=== PATIENT | male | born 1970 | race Caucasian/White ===

== ENCOUNTER → 2019-10-08 10:32 | Outpatient (BNVA) | payer MEDICARE, MEDICAID, SELFPAY | PROVIDERS: Family Provider Counselor Professional; PCP Nurse Practitioner Family; Visit Provider Emergency Medicine | DX: F68.8 Other specified disorders of adult personality and behavior (principal); R51 Headache; R56.9 Unspecified convulsions; I77.9 Disorder of arteries and arterioles, unspecified | CPT/HCPCS: 80053; 84443; 85025 ==

== ENCOUNTER 2019-10-09 02:37 | Emergency (ER) | payer MEDICARE, MEDICAID, SELFPAY ==
--- NOTE | 2019-10-09 02:38 | ECG_ITS ---
Measurements Intervals [place] Rate: 81 P: 46 [place]: 150 QRS: 44 QRSD: 102 T: 35 QT: 337 QTc: 393 SINUS RHYTHM Compared to ECG 03/23/2017 05:14:31 No significant changes Electronically Signed On 10-09-2019 18:19:40 CDT by Delia Mason M.D. [email or web address]
--- NOTE | 2019-10-09 02:38 | XRR_ITS ---
PROCEDURE INFORMATION: Exam: XR Chest, 1 View Exam date and time: 10/09/2019 3:00 AM Age: 49 years old Clinical indication: Cough and shortness of breath; Chest pain; Type not specified; Additional info: Cp TECHNIQUE: Imaging protocol: XR of the chest Views: 1 view. COMPARISON: CR Chest 1 [place] [id number] 03/22/2017 11:28 PM FINDINGS: Lungs: Unremarkable. No consolidation. Pleural space: Unremarkable. No pleural effusion. No pneumothorax. Heart/Mediastinum: Unremarkable. No cardiomegaly. Bones/joints: Cervical spinal fusion hardware. Screw in each humerus. XR/XR chest 1V portable [id number] IMPRESSION: No acute abnormality detected.
[2019-10-09 02:42] VITALS: BP 112/70; PULSE 80; RESP 18; TEMP 36.8; O2SAT 96; BMI 24.3
--- NOTE | 2019-10-09 02:50 | W.ED.CHESTPA ---
HPI - Chest Pain General: Chief Complaint: Chest Pain Stated Complaint: chest pain Time Seen by Provider: 10/09/19 02:38 Source: patient and EMS Mode of arrival: EMS Limitations: no limitations History of Present Illness: HPI narrative: 49-year-old male who has a chest pain over the last 2 hours. Patient states the pain is pressure type pain in the center of his chest that is since resolved with nitro by EMS. Patient also given aspirin. He denies any worsening improving factors. Denies any nausea or shortness of breath. MD complaint: chest pain Onset (ago): hour(s) Timing of current episode: constant Onset: during rest Pain location: substernal Pain radiation: none Severity: moderate Quality: tightness Relieving factors: nitroglycerin Exacerbating factors: nothing Associated symptoms: Deny abdominal pain, dyspnea, fever(s), nausea or vomiting Review of Systems Const: Denies: fever(s), chills, body aches or change in appetite Eyes: Denies: blurry vision or eye discomfort ENMT: Denies: throat pain or dental pain Card: Reports: chest pain Resp: Denies: dyspnea GI: Denies: abdominal pain, nausea, vomiting or diarrhea : Denies: dysuria Musc: Denies: neck pain or back pain Skin/Breast: Denies: rash Neuro: Denies: headache(s) Psych: Denies: depression Tobin/Lymph: Denies: easy bruising All/Imm: Denies: urticaria PFSH ED PFSH: Medical History Carotid artery disease without cerebral infarction Headache Personality change PVC (premature ventricular contraction) Witnessed seizure-like activity Social History Smoking and tobacco status: never smoked Quit status (tobacco): not considering quitting Alcohol intake: never Desire information about alcohol rehabilitation?: No Desire information about substance/drug rehabilitation?: No History of recent travel: No Current gender identity: Male Physical Exam Const: COMMON NORMALS: no acute distress, patient oriented x3 and healthy appearing HENMT: COMMON NORMALS: normocephalic and atraumatic HEAD & SCALP: normocephalic and atraumatic Eye: COMMON NORMALS: Equal, round and reactive pupils present and EOMs intact bilaterally PUPIL: Yes Equal, round and reactive pupils present Neck/C-Spine: COMMON NORMALS: full ROM and supple Chest: COMMONS NORMALS: normal inspection of the chest and normal palpation of entire chest wall Resp: COMMON NORMALS: normal respiratory effort, No retractions, No use of accessory muscles and clear to auscultation bilaterally AUSCULTATION: clear to auscultation bilaterally Cardio: COMMON NORMALS: regular rate, regular rhythm and No murmurs present (Cardio) RATE: regular rate RHYTHM: regular rhythm GI: COMMON NORMALS: Normal to inspection, nondistended, normoactive bowel sounds present, Soft to palpation, non-tender and no masses PALPATION: Yes Soft to palpation Extremity: COMMON NORMALS: normal to inspection and full ROM Neuro: COMMON NORMALS: patient oriented x3, moves all extremities and no focal motor deficits Psych: COMMON NORMALS: mental status grossly normal, Normal thought process present and cooperative THOUGHT PROCESS: Normal thought process present Skin: COMMON NORMALS: no rashes or lesions noted and no wounds GENERAL SKIN EXAM: no rashes or lesions noted Course Vital Signs: Vital signs: Vital Signs Temperature 98.3 F 10/09/19 02:42 Pulse Rate 87 10/09/19 04:50 Respiratory Rate 18 10/09/19 04:50 Blood Pressure 131/73 10/09/19 04:50 Pulse Oximetry 96 10/09/19 04:50 MDM - Chest Pain MDM Narrative: Medical decision making narrative: Brent presents with chest pain is atypical in nature. Patient's initial and repeat troponins are normal. Patient's EKG is normal as well. He has no signs of pulmonary embolism. Patient is stable for discharge is to follow-up with primary care doctor in 3 to 5 days return if worsening. Lab Data: Labs: Lab Results 10/09/19 10/09/19 10/09/19 Range/Units 02:40 02:40 02:40 WBC 9.5 (4.0-10.0) 10^3/ uL RBC 5.04 (4.1-5.3) 10^6/u L Hgb 14.6 (11.7-16.6) g/dL Hct 45.5 (42.0-52.0) % MCV 90.3 (80-94) fL MCH 29.0 (28.0-34.0) pg MCHC 32.1 (30.0-36.0) g/dL RDW 12.8 (12.1-15.1) % Plt Count 339 (130-400) 10^3/c mm MPV 10.3 (7.4-10.4) fL Neut % (Auto) 62.9 % Lymph % (Auto) 23.6 % [place] % (Auto) 10.0 % Eos % (Auto) 2.4 % Baso % (Auto) 0.6 % Neut # (Auto) 5.9 (1.8-7.7) 10^3/u L Lymph # (Auto) 2.2 (0.8-4.8) 10^3/u L [place] # (Auto) 1.0 H (0.2-0.9) 10^3/u L Eos # (Auto) 0.2 (0.0-0.8) 10^3/u L Baso # (Auto) 0.1 (0.0-0.1) 10^3/u L Nucleated RBC % (a uto) 0 % Nucleated RBCs # 0.0 /100WBC Sodium 140 (136-145) mmol/L Potassium 4.5 (3.5-5.1) mmol/L Chloride 107 (98-107) mmol/L Carbon Dioxide 22 (22-29) mmol/L Anion Gap 15.5 (5-19) BUN 33 H (6-20) mg/dL Creatinine 0.8 (0.7-1.2) mg/dL GFR Calculation 101.9 (90-130) mL/min Glucose 100 (65-115) mg/dL Calculated Osmolal ity 287 (285-295) mOsm/k g Calcium 9.7 (8.5-10.5) mg/dL Total Bilirubin 0.2 (0.15-1.2) mg/dL AST 21 (0-40) U/L ALT 26 (0-41) U/L Alkaline Phosphata se 128 (40-130) IU/L Troponin T Baselin e 6 (0-15) ng/L Troponin T 120 Min olaf (0-15) ng/L Total Protein 6.8 (6.6-8.7) g/dL Albumin 4.5 (3.5-5.2) g/dL Globulin 2.3 (1.3-4.6) g/dL 10/09/19 Range/Units 04:47 WBC (4.0-10.0) 10^3/ uL RBC (4.1-5.3) 10^6/u L Hgb (11.7-16.6) g/dL Hct (42.0-52.0) % MCV (80-94) fL MCH (28.0-34.0) pg MCHC (30.0-36.0) g/dL RDW (12.1-15.1) % Plt Count (130-400) 10^3/c mm MPV (7.4-10.4) fL Neut % (Auto) % Lymph % (Auto) % [place] % (Auto) % Eos % (Auto) % Baso % (Auto) % Neut # (Auto) (1.8-7.7) 10^3/u L Lymph # (Auto) (0.8-4.8) 10^3/u L [place] # (Auto) (0.2-0.9) 10^3/u L Eos # (Auto) (0.0-0.8) 10^3/u L Baso # (Auto) (0.0-0.1) 10^3/u L Nucleated RBC % (a uto) % Nucleated RBCs # /100WBC Sodium (136-145) mmol/L Potassium (3.5-5.1) mmol/L Chloride (98-107) mmol/L Carbon Dioxide (22-29) mmol/L Anion Gap (5-19) BUN (6-20) mg/dL Creatinine (0.7-1.2) mg/dL GFR Calculation (90-130) mL/min Glucose (65-115) mg/dL Calculated Osmolal ity (285-295) mOsm/k g Calcium (8.5-10.5) mg/dL Total Bilirubin (0.15-1.2) mg/dL AST (0-40) U/L ALT (0-41) U/L Alkaline Phosphata se (40-130) IU/L Troponin T Baselin e (0-15) ng/L Troponin T 120 Min olaf 6.00 (0-15) ng/L Total Protein (6.6-8.7) g/dL Albumin (3.5-5.2) g/dL Globulin (1.3-4.6) g/dL Imaging Data^: CXR: Radiologist's impression: [address] [place] [address] XRay Report Signed Patient: Brent Wiggins Unit #: [id number] : 1970 Age/Sex: 49 / M ADM Date: 10/09/19 Loc: ER Room/Bed: Attending Dr: Ordering Provider/Ordering MD: Cha Keith MD Date of Service: 10/09/19 Procedure(s): XR chest 1V portable [id number] Accession Number(s): [id number] Report Number: [id number] PROCEDURE INFORMATION: Exam: XR Chest, 1 View Exam date and time: 10/09/2019 3:00 AM Age: 49 years old Clinical indication: Cough and shortness of breath; Chest pain; Type not specified; Additional info: Cp TECHNIQUE: Imaging protocol: XR of the chest Views: 1 view. COMPARISON: CR Chest 1 [place] [id number] 03/22/2017 11:28 PM FINDINGS: Lungs: Unremarkable. No consolidation. Pleural space: Unremarkable. No pleural effusion. No pneumothorax. Heart/Mediastinum: Unremarkable. No cardiomegaly. Bones/joints: Cervical spinal fusion hardware. Screw in each humerus. XR/XR chest 1V portable [id number] IMPRESSION: No acute abnormality detected. EKG Data^: EKG 1: Attestation: I personally reviewed and interpreted this EKG as follows: EKG interpretation date: 10/09/19 EKG interpretation time: 02:56 Interpretation: nsr hr [address] or t wave abnormalities qrs 102 qtc 375 Discharge Plan Discharge Patient Disposition: Home, Self-Care Clinical Impression: Chest pain Qualifiers: Chest pain type: unspecified Qualified Code(s): R07.9 - Chest pain, unspecified Condition: Stable Prescriptions: No Action amoxicillin-pot clavulanate 875-125 mg tablet 1 tab PO BID 10 Days Qty: 20 RF: 0 lisinopril 40 mg tablet 40 mg PO DAILY RF: 0 paroxetine HCl [Paxil] 20 mg tablet 20 mg PO DAILY RF: 0 oxycodone-acetaminophen 10-325 mg tablet 1 tab PO Q6H PRNRF: 0 aripiprazole [Abilify] 10 mg tablet 10 mg PO DAILY RF: 0 Discharge Orders: Discharge Order (Routine); Ordered 10/09/19 Ordered By: Cha Keith Discharge Diet: Advance as tolerated Discharge Activity: Resume usual activity Patient Instructions: Chest Pain (ED) Coding Level of Care Code ED 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
[2019-10-09 02:51] LABS: Basophils # 0.1 10^3/uL (0.0-0.1); Basophils % 0.6 %; Eosinophils # 0.2 10^3/uL (0.0-0.8); Eosinophils % 2.4 %; Hematocrit 45.5 % (42.0-52.0); Hemoglobin 14.6 g/dL (11.7-16.6); Lymphocytes # 2.2 10^3/uL (0.8-4.8); Lymphocytes % 23.6 %; Mean Corpuscular HGB Conc 32.1 g/dL (30.0-36.0); Mean Corpuscular Volume 90.3 fL (80-94); Mean Platelet Volume 10.3 fL (7.4-10.4); Neutrophils # 5.9 10^3/uL (1.8-7.7); Neutrophils % 62.9 %; Nucleated Red Blood Cells % 0 %; Platelet Count 339 10^3/cmm (130-400); Red Blood Count 5.04 10^6/uL (4.1-5.3); Red Cell Distribution Width 12.8 % (12.1-15.1); White Blood Count 9.5 10^3/uL (4.0-10.0)
[2019-10-09 03:10] LABS: Alanine Aminotransferase 26 U/L (0-41); Albumin Level 4.5 g/dL (3.5-5.2); Alkaline Phosphatase 128 IU/L (40-130); Anion Gap 15.5 (5-19); Aspartate Amino Transferase 21 U/L (0-40); Carbon Dioxide 22 mmol/L (22-29); Chloride 107 mmol/L (98-107); Globulin 2.3 g/dL (1.3-4.6); Glucose 100 mg/dL (65-115); Potassium 4.5 mmol/L (3.5-5.1); Sodium 140 mmol/L (136-145); Total Bilirubin 0.2 mg/dL (0.15-1.2); Total Protein 6.8 g/dL (6.6-8.7)
[2019-10-09 03:11] LABS: Troponin(5th) Baseline 6 ng/L (0-15)
[2019-10-09 03:33] LABS: Blood Urea Nitrogen 33 mg/dL (6-20); Calcium 9.7 mg/dL (8.5-10.5); Glomerular Filtration Rate 101.9 mL/min (90-130); Osmolality Calculated 287 mOsm/kg (285-295)
[2019-10-09 04:50] VITALS: BP 131/73; PULSE 87; RESP 18; O2SAT 96
[2019-10-09 05:18] LABS: Troponin 5 2HR Delta 0 ABS# (0-10)
[2019-10-09 05:39] VITALS: BP 146/56; PULSE 68; RESP 19; O2SAT 95
== END 2019-10-09 05:40 | disposition home or self-care (01) ==
PROVIDERS: Emergency Provider Emergency Medicine
DX: R07.9 Chest pain, unspecified (principal); I25.10 Atherosclerotic heart disease of native coronary artery without angina pectoris
CPT/HCPCS: 12345; 71045; 80053; 84484; 85025; 93005; 99281; 99284

== ENCOUNTER 2019-10-12 14:07 | Outpatient (CLI) | payer MEDICARE, MEDICAID, SELFPAY ==
--- NOTE | 2019-10-12 15:00 | CT_ITS ---
WS: [id number] CT HEAD TECHNIQUE: Noncontrast CT of the head obtained from the skullbase to the vertex. CLINICAL INFORMATION: headache, personality change COMPARISON: November 14, 2015 DLP: 925.[address] scans at [facility] use at least one of these dose optimization techniques: automat ed exposure control; mA and/or kV adjustment per patient size (includes targeted exams where dose is matched to clinical indication); or iterative reconstruction. FINDINGS: No evidence of intracranial hemorrhage or mass effect. Ventricular system and basal cisterns are lundy nt. No significant small vessel changes. No significant volume loss. No extra-axial fluid collections . No evidence of mass or mass effect. Normal schofield-white differentiation. Paranasal sinuses and mastoid air cells are well aerated. .Normal visualized soft tissues. CT/CT head wo con* [id number] IMPRESSION: 1. No evidence of intracranial hemorrhage or mass effect. 2. No significant parenchymal volume loss. 3. No acute intracranial findings.
--- NOTE | 2019-10-12 15:15 | CT_ITS ---
WS: [id number] CT NECK TECHNIQUE: Noncontrast CT of the neck with coronal and sagittal reformatted images. CLINICAL INFORMATION: headache, personality change COMPARISON: None. DLP: 2605.[address] scans at [facility] use at least one of these dose optimization techniques: automat ed exposure control; mA and/or kV adjustment per patient size (includes targeted exams where dose is matched to clinical indication); or iterative reconstruction. FINDINGS: Straightening of the normal cervical lordosis. Anterior cervical fusion C5-C7 with interbody fusion. Parotid glands are normal. Normal submandibular glands. Normal posterior nasopharynx. Normal paraphar yngeal fat. Normal palatine tonsils. Normal prevertebral soft tissues. Vallecula and epiglottis are normal. Normal glottis and subglottic airway. Normal thyroid. A few slig ht prominent cervical lymph nodes likely reactive.No cervical lymphadenopathy. Lung apices are well aerated. CT/CT neck wo con [id number] IMPRESSION: 1. No evidence of supraglottic or glottic mass. 2. Normal salivary glands. 3. A few prominent cervical lymph nodes not pathologically enlarged likely nini ctive. 4. Prior postoperative changes anterior cervical disc space fusion C5-C7.
== END 2019-10-12 14:08 | disposition home or self-care (01) ==
LOC: RADWPI 14:12
PROVIDERS: Visit Provider Emergency Medicine
DX: R51 Headache (principal); F68.8 Other specified disorders of adult personality and behavior
CPT/HCPCS: 70450; 70490

== ENCOUNTER → 2019-10-15 08:07 | Outpatient (BNVA) | payer MEDICARE, SELFPAY | PROVIDERS: Visit Provider Counselor Professional | DX: F43.12 Post-traumatic stress disorder, chronic (principal); F41.1 Generalized anxiety disorder | CPT/HCPCS: 90791 ==

== ENCOUNTER → 2019-10-19 10:23 | Outpatient (BNVA) | payer MEDICARE, MEDICAID, SELFPAY | PROVIDERS: Visit Provider Psychiatry & Neurology Psychiatry | DX: F39 Unspecified mood [affective] disorder (principal); F09 Unspecified mental disorder due to known physiological condition; F07.89 Other personality and behavioral disorders due to known physiological condition | CPT/HCPCS: 99205 ==

== ENCOUNTER → 2019-10-26 13:31 | Outpatient (BNVA) | payer MEDICARE, SELFPAY | PROVIDERS: Referring Provider Family Medicine; Visit Provider Specialist | DX: G40.909 Epilepsy, unspecified, not intractable, without status epilepticus (principal) | CPT/HCPCS: 95816 ==

== ENCOUNTER 2019-11-07 00:02 | Inpatient (IN) | payer MEDICARE, MEDICAID, SELFPAY ==
[2019-11-07 00:41] VITALS: BMI 24.4
[2019-11-07 00:54] LABS: Basophils # 0.1 10^3/uL (0.0-0.1); Basophils % 0.4 %; Eosinophils # 0.3 10^3/uL (0.0-0.8); Eosinophils % 2.1 %; Hematocrit 46.9 % (42.0-52.0); Hemoglobin 15.5 g/dL (11.7-16.6); Lymphocytes # 2.4 10^3/uL (0.8-4.8); Lymphocytes % 17.5 %; Mean Corpuscular Hemoglobin 28.8 pg (28.0-34.0); Mean Corpuscular Volume 87.2 fL (80-94); Mean Platelet Volume 11.5 fL (7.4-10.4); Monocytes # 1.5 10^3/uL (0.2-0.9); Monocytes % 11.2 %; Neutrophils # 9.2 10^3/uL (1.8-7.7); Neutrophils % 68.4 %; Nucleated Red Blood Cells % 0 %; Platelet Count 372 10^3/cmm (130-400); Red Blood Count 5.38 10^6/uL (4.1-5.3); Red Cell Distribution Width 13.4 % (12.1-15.1); White Blood Count 13.4 10^3/uL (4.0-10.0)
[2019-11-07 01:02] LABS: Glucose Point of Care 109 mg/dL (70-110)
[2019-11-07 01:18] LABS: Alanine Aminotransferase 30 U/L (0-41); Albumin Level 4.9 g/dL (3.5-5.2); Alkaline Phosphatase 131 IU/L (40-130); Anion Gap 20.2 (5-19); Aspartate Amino Transferase 38 U/L (0-40); Blood Urea Nitrogen 19 mg/dL (6-20); Calcium 9.4 mg/dL (8.5-10.5); Carbon Dioxide 20 mmol/L (22-29); Chloride 102 mmol/L (98-107); Globulin 3.6 g/dL (1.3-4.6); Glomerular Filtration Rate 58.2 mL/min (90-130); Glucose 143 mg/dL (65-115); Osmolality Calculated 287 mOsm/kg (285-295); Potassium 3.2 mmol/L (3.5-5.1); Sodium 139 mmol/L (136-145); Total Bilirubin 0.6 mg/dL (0.15-1.2); Total Protein 8.5 g/dL (6.6-8.7)
[2019-11-07 01:37] LABS: Acetaminophen < 5.0 ug/mL (10-30); Alcohol Level < 10 mg/dL (0-10); Salicylate < 0.3 mg/dL (3-10)
[2019-11-07 02:36] VITALS: BP 124/75; PULSE 82; RESP 18; O2SAT 93
[2019-11-07] MEDS: sodium chlor 0.9% + KCl 40 mEq 40 MEQ/1,000 ML BAG 1000 MEQ IV (02:45)
--- NOTE | 2019-11-07 02:48 | XRR_ITS ---
PROCEDURE INFORMATION: Exam: XR Chest, 1 View Exam date and time: 11/07/2019 3:24 AM Age: 49 years old Clinical indication: Patient HX: Cough; Tried to harm himself by taking meth TECHNIQUE: Imaging protocol: XR of the chest Views: Frontal portable upright view of the chest. COMPARISON: CR XR chest 1V portable [id number] 10/09/2019 2:44 AM FINDINGS: Tubes, catheters and devices: Lower cervical spinal anterior fixation hardware. Bilateral proximal humeral greater tuberosity suture anchors. Lungs: The lungs are clear bilaterally. The pulmonary vasculature is normal. Pleural space: No pleural effusion. No pneumothorax. Heart/Mediastinum: The heart is normal in size and contour. Bones/joints: No acute chest wall abnormality identified. XR/XR chest 1V [id number] IMPRESSION: No acute cardiopulmonary abnormality identified.
[2019-11-07 02:52] VITALS: TEMP 36.4
--- NOTE | 2019-11-07 02:54 | PC.NURSE ---
Pt. placed in paper scrubs.
[2019-11-07 03:07] LABS: Add Urine Microscopic? YES; Bilirubin Urine 1+ (NEGATIVE); Blood Urine Neg (Negative); Glucose Urine UA Norm (Normal); Ketones Urine Negative (Negative); Leukocyte Esterase Urine Negative (Negative); Nitrate Urine Negative (Negative); Protein Urine Neg (Negative); Urine Appearance Hazy (CLEAR); Urine Color Dark Yellow (Yellow); Urobilinogen Urine 1 mg/dL (Negative); pH Urine 5 (5-7)
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
[2019-11-07] MEDS: guaiFENesin-codeine UDC 10 mL 5 ML PO (03:31)
[2019-11-07 03:35] LABS: Add Urine Culture? No; Bacteria Urine TRACE; Hyaline Casts Urine 25-40; Mucus Urine 3+; RBC Urine 0-4 /hpf (0-2)
[2019-11-07 03:36] LABS: Amphetamines Screen Urine Positive (Negative); Barbiturates Screen Urine Negative (Negative); Benzodiazepines Screen Urine Negative (Negative); Cocaine Screen Urine Negative (Negative); Opiate Screen Urine Negative (Negative); PCP Screen Urine Negative (Negative); THC Screen Urine Negative (Negative)
[2019-11-07 03:39] VITALS: BP 120/87; PULSE 82; RESP 19; O2SAT 97
[2019-11-07 06:00] VITALS: BP 136/97; PULSE 79; RESP 19; TEMP 36.6; O2SAT 97
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
[2019-11-07] MEDS: hyDROXYzine 25 mg Capsule 50 MG PO ×2 (13:30→22:27)
[2019-11-07 14:00] VITALS: BP 96/61; PULSE 82; RESP 18; TEMP 36.8
[2019-11-07 21:48] VITALS: BP 105/61; PULSE 82; RESP 21; TEMP 36.9; O2SAT 98
[2019-11-07] MEDS: trazodone 50 mg Tablet PO (22:27)
[2019-11-08 06:00] VITALS: BP 128/63; PULSE 65; RESP 19; TEMP 36.9; O2SAT 96
[2019-11-08] MEDS: hyDROXYzine 25 mg Capsule 50 MG PO (12:13)
--- NOTE | 2019-11-08 12:13 | PC.NURSE ---
PRN VISTARIL VISTARIL 50MG PO PER PATIENT C/O ANXIETY. WILL CONTINUE TO MONITOR FOR MEDICATION EFFECTIVENESS.
--- NOTE | 2019-11-08 13:00 | PC.NURSE ---
PRN VISTARIL FOLLOW UP MEDICATION EFFECTIVE. NO FURTHER C/O ANXIETY.
[2019-11-08 14:00] VITALS: BP 109/72; PULSE 80; RESP 20; TEMP 37; O2SAT 96
--- NOTE | 2019-11-08 14:37 | P.PN_ITS ---
Subjective NPU Subjective: Interval history: Subjective: Patient confirms the presence of signs and symptoms of clinical depression. He reports that the suicide attempt by methamphetamine overdose was impulsive and due to a response to the family distress of the day before. He had been sober and clean for 2 years before using the methamphetamine. It was not a habitual activity. He is very r emorseful over the act and is looking forward to getting home to his . He also reports the presence of persistent insomnia, irritability, feelings of hopelessness, worthlessness, anhedonia. He denies the presence of auditory or visual hallucinations. He denies a history of manic symptoms. He denies alcohol or substance abuse issues. Mental Status Exam MSE Comments: Objective: Mental Status Exam: Patient is alert interpersonally engaged male appearing approximately his stated age. He is believed to be a reliable informant to the best of his ability has information provided this internally consistent and consistent with that in the chart. Appearance: hygiene is fair; no gross neurological deficits., gait is unremarkable; AIMS=0 Speech: Speech is of normal rate and rhythm and easily understood. Thought processes: Thought processes are abstract. Judgment is adequate for safety. Associations: intact Psychotic processes: There is no indication of guarding or paranoia. There is no attention to the internal stimuli. Auditory and visual hallucinations are denied. Judgment: Insight is fair. Problem solving skills are adequate for safety. Orientation: The patient is oriented to person, place time and situation. Memory: no deficits noted in immediate, intermediate, or remote spheres. Attention: The patient is alert and interpersonally engaged. Language: Verbalizations are coherent. Fund of knowledge: Fund of knowledge is adequate. Affect/Mood: Affect is tearful with a depressed mood. denied suicidal ideation Affective range is appropriate. Psychosis: perception unimpaired except through cognitive distortion; reality testing intact. Vitals/I&O/Wt Last Vital Signs Temp 98.5 F 11/08/19 06:00 Pulse 65 11/08/19 06:00 Resp 19 H 11/08/19 06:00 BP 128/63 11/08/19 06:00 Pulse Ox 96 11/08/19 06:00 Weight last 48 hrs Weight 81.647 kg Weight 81.647 kg Data NPU : 11/07/19 00:47 11/07/19 00:47 A&P Additional A&P Information Assessment: 1. Major episode?single, severe, without psychotic features PLAN: Due to the psychiatric conditions and treatment listed in the Assessment and Plan - the patient requires continued hospitalization. Will provide a safe and therapeutic environment for patient.. Will continue inpatient treatment to allow for medication adjustment and monitoring. Will continue q15 min safety checks. Hospital day #2: The patient was educated with regard to signs and symptoms of depression and expected response to medications if effective. He was also educated that with regard to time course of response to medications and contingency plan in the presence of adverse or unexpected side effects. He agreed to initiate Prozac 20 mg daily. Trazodone 100 mg at bedtime will be provided for sleep and Atarax 20 mg twice daily as needed anxiety. Monitor patient's mood, sleep, appetite, and behavior closely. Encourage patient to participate in individual and group therapeutic sessions on the wells. Estimated length of stay 5 days The expected benefits and potential side effects of patient's psychiatric medications were discussed with the patient. The patient understands and consents to treatment. CRITERIA FOR DISCHARGE: stable on medications and no longer an imminent threat to self or others Involuntary Hold Information 96 Hour Hold: 96 Hour Involuntary Admission: No Attestations NPU Medical Necessity Statement*: Patient will remain in the hospital another 2 to 3 days for assessment of tolerability and effectiveness of medication. Coding Level of Care Code Acute Aerospace Engineer for Ruddy Dorsey
[2019-11-08] MEDS: cetylpyridinium Lozenge 1 EACH PO (15:40)
[2019-11-08] MEDS: fluoxetine 20 mg Capsule PO (15:40)
[2019-11-08 20:12] VITALS: BP 100/57; PULSE 72; RESP 15; TEMP 37.1; O2SAT 97
[2019-11-08] MEDS: trazodone 50 mg Tablet 100 MG PO (20:50)
--- NOTE | 2019-11-08 20:50 | PC.NURSE ---
Addendum entered by Miki Reynolds LPN 11/09/19 01:28: LATE ENTRY PRN TRAZODONE FOLLOW UP @ 2150 PRN MEDICATION EFFECTIVE. PT RESTING IN BED W/EYES CLOSED RESPIRATIONS EVEN AND UNLABORED. WILL CONTINUE TO MONITOR. Original Note: PRN TRAZODONE PT REQUESTING SLEEP AID. ADMINISTERED TRAZODONE 100MG PO. WILL MONITOR FOR MEDICATION EFFECTIVENESS.
[2019-11-09 06:00] VITALS: BP 136/73; PULSE 71; RESP 15; TEMP 36.8; O2SAT 96
[2019-11-09] MEDS: hyDROXYzine 25 mg Capsule 50 MG PO (06:57)
--- NOTE | 2019-11-09 07:04 | PC.NURSE ---
PRN VISTARIL [PT REQUESTING SOMETHING FOR ANXIETY. ADMINISTERED VISTARIL 50 MG PO. WILL MONITOR FOR MEDICATION EFFECTIVENESS.
[2019-11-09] MEDS: fluoxetine 20 mg Capsule PO (09:00)
--- NOTE | 2019-11-09 11:35 | PM.NDC ---
Diagnoses at Discharge Discharge Diagnosis (1) Major depression, single episode: Status: Acute Reason for Visit Reason for Visit: TRIED TO HARM HIMSELF BY TAKING METH Brief History: Initial H&P:Brent Wiggins is a 49 year old male Per last [facility] [place] eval: History of Present Illness Date of Service: Mar 23, 2017 Chief Complaint: Depression suicidal ideation HPI: Patient is a 46-year-old male who is not known to our behavioral health services who presented initially to the [facility] ED with a complaint of chest pain. His cardiac enzymes negative workup was negative. He eventually expressed suicidal ideation with a plan to take an overdose on tablets. His BAL on admission was negative, his UDS was negative. As the patient presents today he states that he's been having difficulties with his relationship with his mother and his girlfriend. He does state however that for the past month he's been experiencing worsening depression symptoms characterized by depressed mood, anhedonia, decreased energy, decreased motivation, decreased appetite, interrupted sleep, intermittent hopelessness, and most recently suicidal ideation. He reports that he is experience depression episodes in the past and in comparison, this is the worst that she's experienced in a while. He also admits to anxiety, in the form of worry, and in the form of anxiety attacks that happened 1-2 times a week, without any specific trigger. He denies any symptoms consistent with ady, hypomania, psychosis. Patient states that he is not a regular drinker but 3 days ago he did binge drink because he was feeling somewhat hopeless. He does not smoke cigarettes, he states that he last used methamphetamines approximately 1 year ago, no other substance use. Hospital Course Hospital Course Hospital day #2 Interval history: Subjective: Patient confirms the presence of signs and symptoms of clinical depression. He reports that the suicide attempt by methamphetamine overdose was impulsive and due to a response to the family distress of the day before. He had been sober and clean for 2 years before using the methamphetamine. It was not a habitual activity. He is very remorseful over the act and is looking forward to getting home to his . He also reports the presence of persistent insomnia, irritability, feelings of hopelessness, worthlessness, anhedonia. He denies the presence of auditory or visual hallucinations. He denies a history of manic symptoms. He denies alcohol or substance abuse issues. Plan: Hospital day #2: The patient was educated with regard to signs and symptoms of depression and expected response to medications if effective. He was also educated that with regard to time course of response to medications and contingency plan in the presence of adverse or unexpected side effects. He agreed to initiate Prozac 20 mg daily. Trazodone 100 mg at bedtime will be provided for sleep and Atarax 20 mg twice daily as needed anxiety. Involuntary Hold Information 96 Hour Hold: 96 Hour Involuntary Admission: No Mental Status Exam MSE Comments: Discharge Mental Status Exam: Appearance: hygiene is good; no gross neurological deficits., gait is unremarkable; AIMS=0 Speech: Speech is of normal rate and rhythm and easily understood. Thought processes: Thought processes are abstract. Judgment is adequate for safety. Associations: intact Psychotic processes: There is no indication of guarding or paranoia. There is no attention to the internal stimuli. Auditory and visual hallucinations are denied. Judgment: Insight is fair. Problem solving skills are adequate for safety. Orientation: The patient is oriented to person, place time and situation. Memory: no deficits noted in immediate, intermediate, or remote spheres. Attention: The patient is alert and interpersonally engaged. Language: Verbalizations are coherent. Fund of knowledge: Fund of knowledge is adequate. Affect/Mood: Affect is consistent with a euthymic mood. denied suicidal ideation Affective range is appropriate. Psychosis: perception unimpaired except through cognitive distortion; reality testing intact. Discharge Data Data Completed and Pending: Completed Studies During Hospitalization Category Date Time Status XR chest 1V 42017 Stat Exams 11/07/19 02:48 Completed Vitals: Last Vital Signs Temp 98.2 F 11/09/19 06:00 Pulse 71 11/09/19 06:00 Resp 15 11/09/19 06:00 BP 136/73 11/09/19 06:00 Pulse Ox 96 11/09/19 06:00 Discharge Plan Discharge Patient Disposition: Home, Self-Care Condition: Stable Prescriptions: New fluoxetine 20 mg Capsule 20 mg PO DAILY Qty: 30 RF: 4 hydroxyzine pamoate 25 mg Capsule 50 mg PO Q6H PRN (Reason: Anxiety) Qty: 30 RF: 2 trazodone 100 mg tablet 100 mg PO BEDTIME PRN (Reason: insomnia) Qty: 20 RF: 2 Discontinued paroxetine HCl [Paxil] 20 mg tablet 40 mg PO DAILY Qty: 30 RF: 2 oxcarbazepine [Trileptal] 150 mg tablet 150 mg PO BID Qty: 120 RF: 2 folic acid 1 mg tablet 1 mg PO DAILY Qty: 30 RF: 2 zinc 50 mg tablet 50 mg PO DAILY Qty: 30 RF: 2 magnesium oxide 200 mg magnesium tablet 200 mg PO BID Qty: 60 RF: 2 armodafinil [Nuvigil] 150 mg tablet 150 mg PO QAM Qty: 30 RF: 2 amoxicillin-pot clavulanate 875-125 mg tablet 1 tab PO BID 10 Days Qty: 20 RF: 0 oxycodone-acetaminophen 10-325 mg tablet 1 tab PO Q6H PRNRF: 0 lisinopril 40 mg tablet 20 mg PO DAILY RF: 0 Discharge Orders: Discharge Order (Routine); Ordered 11/09/19 Ordered By: Kyree Betancur Discharge Attestations NPU Time Spent in Discharge Care*: greater than 30 min Coding Level of Care Code Acute Sales Representative [employer] for Ruddy Fwdenzel Diagnoses Major depression, single episode F32.9
[2019-11-09] MEDS: cetylpyridinium Lozenge 1 EACH PO (11:43)
[2019-11-09 11:56] VITALS: BP 136/73; PULSE 71; RESP 15; TEMP 36.8; O2SAT 96
== END 2019-11-09 12:49 | disposition home or self-care (01) | DRG 885 ==
LOC: ER 02:51 → NP 03:06
PROVIDERS: Emergency Medicine; Admitting Provider Psychiatry & Neurology Psychiatry; Visit Provider Psychiatry & Neurology Psychiatry
DX: F32.2 Major depressive disorder, single episode, severe without psychotic features (principal); R45.851 Suicidal ideations; I10 Essential (primary) hypertension; G89.29 Other chronic pain; M54.9 Dorsalgia, unspecified; M54.2 Cervicalgia; K21.9 Gastro-esophageal reflux disease without esophagitis; G25.81 Restless legs syndrome; G47.30 Sleep apnea, unspecified; F17.210 Nicotine dependence, cigarettes, uncomplicated
CPT/HCPCS: 12345; 36416; 71045; 80053; 80156; 80306; 80307; 81001; 81003; 82962; 85025; 99284

== ENCOUNTER 2019-12-08 13:04 | Outpatient (CLI) | payer MEDICARE, MEDICAID, SELFPAY ==
--- NOTE | 2019-12-08 10:15 | USCV_ITS ---
Brent Wiggins Age: 49 Gender: M : 1970 Exam Date: 12/08/2019 13:15 Ordering Phys: Efrain Cornejo Technologist: Heidy May [place] [facility] [place] STENOS[place] Risk Factors: Previous Vascular Surgery: Right Brachial BP: / Left Brachial BP: / Right Left Velocity (cm/s) Spectral Plaque Velocity (cm/s) Spectral Plaque Syst/Diast Broadening Syst/Diast Broadening 62.10/ 10.90 Prox CCA 41.30 / 14.80 68.40/ 19.40 Mid CCA 43.60 / 13.00 60.60/ 18.60 Distal CCA 45.40 / 12.50 51.90/ 15.10 Prox ICA 55.90 / 20.90 / Mid ICA 63.10 / 26.50 47.30/ 15.50 Distal ICA 73.30 / 29.20 125.80 ECA 61.10 0.76 ICA/CCA 1.61 Antegrade Vertebral Antegrade 36.70/ 8.80 cm/s 31.40/ 8.10 cm/s Tri Subclavian Tri 98.20 FINDINGS Comparison:. none No significant elevation of systolic or diastolic velocities. Waveforms are normal. CONCLUSIONS Normal carotid doppler ultrasound. Dr. Elly Easley DO (Electronically Signed) Final Date: 08 December 2019 15:38 S
== END 2019-12-08 13:05 | disposition home or self-care (01) ==
LOC: RAD 13:07
PROVIDERS: PCP Family Medicine; Visit Provider Emergency Medicine
DX: Z87.898 Personal history of other specified conditions (principal); I65.29 Occlusion and stenosis of unspecified carotid artery
CPT/HCPCS: 93880

== ENCOUNTER 2020-03-24 14:53 | Outpatient (CLI) | payer MEDICARE, MEDICAID, SELFPAY ==
--- NOTE | 2020-03-24 15:00 | XR_ITS ---
WS: [id number] Exam: XR cervical spine 3V* [id number] Date/Time of Exam: 03/24/2020 3:00 PM Reason For Exam: M54.2 - Cervicalgia Comparison 05/09/2015. Interbody fusion of the C-spine from C5 to C7. Disc implants at C5-6 and C6-7. The fusion is ossified and in satisfactory alignment. The odontoid is intact. Mild facet DJD at all levels. Normal paraspin al soft tissues. No sign of hardware failure or malposition. XR/XR cervical spine 3V* [id number] IMPRESSION: 1. Stable-appearing interbody fusion from C5 to C7. 2. Mild facet DJD. No other significant finding.
== END 2020-03-24 14:54 | disposition home or self-care (01) ==
LOC: RAD 14:57
PROVIDERS: PCP Family Medicine; Visit Provider Emergency Medicine
DX: R51.9 Headache, unspecified (principal); M43.22 Fusion of spine, cervical region; M47.812 Spondylosis without myelopathy or radiculopathy, cervical region
CPT/HCPCS: 72040

== ENCOUNTER → 2020-04-03 11:15 | Outpatient (BNVA) | payer MEDICARE, MEDICAID, SELFPAY | PROVIDERS: PCP Family Medicine; Visit Provider Specialist | DX: R56.9 Unspecified convulsions (principal); G43.711 Chronic migraine without aura, intractable, with status migrainosus; F41.9 Anxiety disorder, unspecified; F43.10 Post-traumatic stress disorder, unspecified; F31.9 Bipolar disorder, unspecified; F17.220 Nicotine dependence, chewing tobacco, uncomplicated | CPT/HCPCS: 99205 ==

== ENCOUNTER 2020-04-29 15:57 | Inpatient (IN) | payer MEDICARE, MEDICAID, SELFPAY ==
[2020-04-29 15:58] VITALS: BP 187/109; PULSE 73; RESP 16; TEMP 36.6; O2SAT 98; BMI 24.3
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
[2020-04-29] MEDS: LORazepam 2 mg Tablet PO (16:41)
[2020-04-29 17:28] LABS: Add Urine Microscopic? NO
[2020-04-29 17:30] LABS: Urine Appearance Clear (CLEAR); Urine Color Yellow (Yellow); pH Urine 5 (5-7)
[2020-04-29 17:31] LABS: Bilirubin Urine Neg (Negative); Blood Urine Neg (Negative); Glucose Urine UA Norm (Normal); Ketones Urine Negative (Negative); Leukocyte Esterase Urine Negative (Negative); Nitrate Urine Negative (Negative); Protein Urine Neg (Negative); Urobilinogen Urine Norm (Negative)
[2020-04-29 17:39] LABS: Amphetamines Screen Urine Positive (Negative); Barbiturates Screen Urine Negative (Negative); Benzodiazepines Screen Urine Negative (Negative); Cocaine Screen Urine Negative (Negative); Opiate Screen Urine Negative (Negative); PCP Screen Urine Negative (Negative); THC Screen Urine Negative (Negative)
[2020-04-29 17:50] LABS: Basophils # 0.1 10^3/uL (0.0-0.1); Basophils % 0.7 %; Eosinophils # 0.2 10^3/uL (0.0-0.8); Eosinophils % 1.9 %; Hematocrit 43.6 % (42.0-52.0); Hemoglobin 14.8 g/dL (11.7-16.6); Lymphocytes # 2.3 10^3/uL (0.8-4.8); Mean Corpuscular HGB Conc 33.9 g/dL (30.0-36.0); Mean Corpuscular Hemoglobin 28.7 pg (28.0-34.0); Mean Corpuscular Volume 84.7 fL (80-94); Mean Platelet Volume 10.4 fL (7.4-10.4); Monocytes # 0.7 10^3/uL (0.2-0.9); Monocytes % 8.8 %; Neutrophils # 4.97 10^3/uL (1.8-7.7); Neutrophils % 60.4 %; Nucleated Red Blood Cells % 0 %; Platelet Count 345 10^3/cmm (130-400); Red Blood Count 5.15 10^6/uL (4.1-5.3); Red Cell Distribution Width 13.2 % (12.1-15.1); White Blood Count 8.3 10^3/uL (4.0-10.0)
[2020-04-29 18:05] LABS: Alanine Aminotransferase 28 U/L (0-41); Alkaline Phosphatase 156 IU/L (40-130); Aspartate Amino Transferase 26 U/L (0-40); Blood Urea Nitrogen 11 mg/dL (6-20); Calcium 9.2 mg/dL (8.5-10.5); Carbon Dioxide 24 mmol/L (22-29); Chloride 103 mmol/L (98-107); Globulin 2.8 g/dL (1.3-4.6); Glomerular Filtration Rate 118.9 mL/min (90-130); Glucose 100 mg/dL (65-115); Osmolality Calculated 281 mOsm/kg (285-295); Sodium 136 mmol/L (136-145); Total Bilirubin 0.2 mg/dL (0.15-1.2); Total Protein 6.8 g/dL (6.6-8.7)
[2020-04-29 18:09] LABS: Acetaminophen < 5.0 ug/mL (10-30); Alcohol Level < 10 mg/dL (0-10); Salicylate < 0.3 mg/dL (3-10)
[2020-04-29] MEDS: lidocaine 1% INJ 20 mL INJECTION (18:20)
--- NOTE | 2020-04-29 18:30 | PC.NURSE ---
Dr. Escoto removed a large splinter from under the left ring fingernail. Finger dressed with a bandaid and coban for pressure.
[2020-04-29] MEDS: tetanus-dipt-pertussis 0.5 mL SDV IM (18:43)
[2020-04-29 19:28] VITALS: BP 153/100; PULSE 99; RESP 17; TEMP 36.3; O2SAT 95
[2020-04-29] MEDS: hyDROXYzine 25 mg Capsule 50 MG PO (20:42)
[2020-04-29] MEDS: trazodone 50 mg Tablet PO (20:42)
[2020-04-29 21:27] VITALS: BP 153/100; PULSE 99; RESP 17; TEMP 36.3; O2SAT 95
[2020-04-30 06:00] VITALS: BP 169/90; PULSE 71; RESP 17; TEMP 37.2; O2SAT 91; BMI 24.3
[2020-04-30] MEDS: amoxicillin-clav 875-125 mg Tablet 1 TAB PO ×2 (08:20→20:39)
[2020-04-30] MEDS: OXcarbazepine 300 mg Tablet 600 MG PO ×2 (08:20→20:39)
[2020-04-30] MEDS: fluoxetine 20 mg Capsule 40 MG PO (08:20)
[2020-04-30] MEDS: gabapentin 300 mg Capsule PO ×2 (08:20→20:41)
[2020-04-30 13:43] VITALS: BP 160/90; PULSE 72; RESP 18; TEMP 36.5
[2020-04-30] MEDS: acetaminophen 325 mg Tablet 650 MG PO (14:19)
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
[2020-04-30 20:10] VITALS: BP 145/70; PULSE 84; RESP 17; TEMP 36.1; O2SAT 96
[2020-04-30] MEDS: hyDROXYzine 25 mg Capsule 50 MG PO (20:39)
[2020-04-30] MEDS: trazodone 50 mg Tablet PO (20:40)
[2020-05-01 06:00] VITALS: BP 135/74; PULSE 63; RESP 16; TEMP 36.7; O2SAT 94
[2020-05-01] MEDS: gabapentin 300 mg Capsule PO ×2 (08:49→20:26)
[2020-05-01] MEDS: fluoxetine 20 mg Capsule PO (08:50)
[2020-05-01] MEDS: OXcarbazepine 300 mg Tablet 600 MG PO ×2 (08:50→20:26)
[2020-05-01] MEDS: amoxicillin-clav 875-125 mg Tablet 1 TAB PO ×2 (08:51→20:26)
--- NOTE | 2020-05-01 11:21 | PC.RESP ---
Smoking Cessation information sent to patient.
[2020-05-01 13:38] VITALS: BP 127/73; PULSE 78; RESP 18; TEMP 36.9; O2SAT 93
[2020-05-01] MEDS: acetaminophen 325 mg Tablet 650 MG PO (19:52)
[2020-05-01 20:23] VITALS: BP 114/74; PULSE 98; RESP 18; TEMP 37.2; O2SAT 93
[2020-05-01] MEDS: trazodone 50 mg Tablet PO (20:26)
[2020-05-01] MEDS: hyDROXYzine 25 mg Capsule 50 MG PO (20:26)
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
[2020-05-01] MEDS: trazodone 150 mg Tablet PO (21:42)
[2020-05-02 06:00] VITALS: BP 124/88; PULSE 74; RESP 16; TEMP 36.7; O2SAT 92
[2020-05-02] MEDS: OXcarbazepine 300 mg Tablet 600 MG PO (08:13)
[2020-05-02] MEDS: fluoxetine 20 mg Capsule PO (08:13)
[2020-05-02] MEDS: amoxicillin-clav 875-125 mg Tablet 1 TAB PO (08:13)
[2020-05-02] MEDS: gabapentin 300 mg Capsule PO (08:14)
[2020-05-02] MEDS: nicotine 2 mg Gum BUCCAL (10:39)
[2020-05-02] MEDS: hyDROXYzine 25 mg Capsule 50 MG PO (10:41)
--- NOTE | 2020-05-02 10:41 | PC.NURSE ---
Visteril 50mg PO given for anxiety. Will continue to monitor.
[2020-05-02 11:58] VITALS: BP 124/88; PULSE 74; RESP 16; TEMP 36.7; O2SAT 92
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
== END 2020-05-02 14:20 | disposition home or self-care (01) | DRG 885 ==
LOC: ER 16:37 → NP 18:21
PROVIDERS: Admitting Provider Psychiatry & Neurology Psychiatry; Emergency Provider Family Medicine; PCP Family Medicine; Visit Provider Psychiatry & Neurology Psychiatry
DX: F31.9 Bipolar disorder, unspecified (principal); R45.851 Suicidal ideations; Z81.8 Family history of other mental and behavioral disorders; I10 Essential (primary) hypertension; Z63.0 Problems in relationship with spouse or partner; F41.9 Anxiety disorder, unspecified; F41.0 Panic disorder [episodic paroxysmal anxiety]; I65.29 Occlusion and stenosis of unspecified carotid artery; G89.29 Other chronic pain; M54.9 Dorsalgia, unspecified; K21.9 Gastro-esophageal reflux disease without esophagitis; G25.81 Restless legs syndrome; G47.30 Sleep apnea, unspecified; F17.220 Nicotine dependence, chewing tobacco, uncomplicated; F43.10 Post-traumatic stress disorder, unspecified; F09 Unspecified mental disorder due to known physiological condition; F07.89 Other personality and behavioral disorders due to known physiological condition; G43.711 Chronic migraine without aura, intractable, with status migrainosus; S60.453A Superficial foreign body of left middle finger, initial encounter; W45.8XXA Other foreign body or object entering through skin, initial encounter; L03.012 Cellulitis of left finger
CPT/HCPCS: 12345; 80053; 80306; 80307; 81003; 85025; 90471; 90715; 99284

== ENCOUNTER 2020-08-24 16:15 | Inpatient (IN) | payer MEDICARE, MEDICAID, SELFPAY ==
--- NOTE | 2020-08-24 16:16 | ECG_ITS ---
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 Measurements Intervals [place] Rate: 99 P: 59 CA: 147 QRS: 40 QRSD: 93 T: 48 QT: 338 QTc: 434 Interpretive Statements SINUS RHYTHM POSSIBLE LEFT ATRIAL ENLARGEMENT [-0.1mV P WAVE IN V1/V2] Compared to ECG 10/09/2019 02:56:39 No significant changes Electronically Signed On 08-24-2020 21:55:54 CDT by Camacho Hsieh M.D. [email or web address]
[2020-08-24 16:21] VITALS: BP 168/113; PULSE 99; RESP 18; O2SAT 97; BMI 24.3
[2020-08-24 17:01] LABS: Amphetamines Screen Urine Positive (Negative); Barbiturates Screen Urine Negative (Negative); Benzodiazepines Screen Urine Negative (Negative); Cocaine Screen Urine Negative (Negative); Opiate Screen Urine Negative (Negative); PCP Screen Urine Negative (Negative); THC Screen Urine Negative (Negative)
[2020-08-24 17:10] LABS: Basophils # 0.1 10^3/uL (0.0-0.1); Basophils % 0.6 %; Eosinophils # 0.2 10^3/uL (0.0-0.8); Eosinophils % 1.8 %; Hematocrit 46.8 % (42.0-52.0); Hemoglobin 15.1 g/dL (11.7-16.6); Lymphocytes # 1.4 10^3/uL (0.8-4.8); Lymphocytes % 15.8 %; Mean Corpuscular HGB Conc 32.3 g/dL (30.0-36.0); Mean Corpuscular Hemoglobin 27.4 pg (28.0-34.0); Mean Corpuscular Volume 84.8 fL (80-94); Mean Platelet Volume 10.2 fL (7.4-10.4); Monocytes # 0.9 10^3/uL (0.2-0.9); Monocytes % 9.7 %; Neutrophils # 6.42 10^3/uL (1.8-7.7); Neutrophils % 71.7 %; Nucleated Red Blood Cells % 0 %; Platelet Count 391 10^3/cmm (130-400); Red Blood Count 5.52 10^6/uL (4.1-5.3); Red Cell Distribution Width 13.5 % (12.1-15.1)
[2020-08-24 17:31] LABS: Acetaminophen < 5.0 ug/mL (10-30); Alanine Aminotransferase 21 U/L (0-41); Albumin Level 3.8 g/dL (3.5-5.2); Alcohol Level < 10 mg/dL (0-10); Alkaline Phosphatase 153 IU/L (40-130); Anion Gap 13.5 (5-19); Aspartate Amino Transferase 18 U/L (0-40); Blood Urea Nitrogen 8 mg/dL (6-20); Calcium 8.4 mg/dL (8.5-10.5); Carbon Dioxide 24 mmol/L (22-29); Chloride 105 mmol/L (98-107); Globulin 3.4 g/dL (1.3-4.6); Glomerular Filtration Rate 88.6 mL/min (90-130); Glucose 106 mg/dL (65-115); Osmolality Calculated 287 mOsm/kg (285-295); Potassium 3.5 mmol/L (3.5-5.1); Salicylate < 0.3 mg/dL (3-10); Sodium 139 mmol/L (136-145); Total Bilirubin 0.2 mg/dL (0.15-1.2); Total Protein 7.2 g/dL (6.6-8.7)
[2020-08-24] MEDS: LORazepam 1 mg Tablet PO (17:31)
[2020-08-24] MEDS: neomycin-poly-bacitracin oint 0.9 gm Pkt 1 APPLIC TOPICAL (17:32)
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
[2020-08-24 19:42] VITALS: BP 159/103; PULSE 104; RESP 18; TEMP 36.8; O2SAT 95
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
[2020-08-24 21:24] VITALS: BP 159/103; PULSE 104; RESP 18; TEMP 36.8; O2SAT 95
[2020-08-25] MEDS: amitriptyline 25 mg Tablet PO ×2 (00:02→19:43)
[2020-08-25] MEDS: gabapentin 300 mg Capsule PO ×4 (00:02→19:43)
[2020-08-25] MEDS: trazodone 150 mg Tablet PO ×2 (00:02→19:43)
[2020-08-25] MEDS: mupirocin oint 22 gm 1 APPLIC TOPICAL ×3 (00:02→18:29)
[2020-08-25] MEDS: triamcinolone 0.1% cream 15 gm 1 APPLIC TOPICAL ×3 (00:03→18:28)
[2020-08-25] MEDS: ropinirole 0.25 mg Tablet PO ×3 (00:11→18:25)
[2020-08-25 06:00] VITALS: BP 132/89; PULSE 70; RESP 15; TEMP 36.8; O2SAT 95
[2020-08-25] MEDS: fluoxetine 20 mg Capsule 40 MG PO (08:58)
[2020-08-25 14:00] VITALS: BP 141/77; PULSE 80; RESP 17; TEMP 36.9; O2SAT 93
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
[2020-08-25] MEDS: OLANZapine 5 mg ODT PO (15:12)
--- NOTE | 2020-08-25 15:15 | PC.RESP ---
Smoking Cessation information sent to patient.
--- NOTE | 2020-08-25 15:16 | PC.NURSE ---
administered PRN Zyprexa Zydis 5mg, pt stated that he needs something to calm the thoughts in his head, will continue to monitor
[2020-08-25] MEDS: lamoTRIgine 25 mg Tablet PO (18:25)
[2020-08-25] MEDS: fluoxetine 20 mg Capsule PO (18:26)
[2020-08-25 19:38] VITALS: BP 129/70; PULSE 80; RESP 16; TEMP 36.6; O2SAT 95
[2020-08-26 06:00] VITALS: BP 118/69; PULSE 79; RESP 16; TEMP 37.6; O2SAT 97
[2020-08-26] MEDS: ropinirole 0.25 mg Tablet PO ×2 (08:56→17:37)
[2020-08-26] MEDS: fluoxetine 20 mg Capsule 60 MG PO (08:57)
[2020-08-26] MEDS: lamoTRIgine 25 mg Tablet PO (08:57)
[2020-08-26] MEDS: gabapentin 300 mg Capsule PO ×3 (08:57→20:31)
[2020-08-26] MEDS: triamcinolone 0.1% cream 15 gm 1 APPLIC TOPICAL ×2 (11:36→17:38)
[2020-08-26] MEDS: mupirocin oint 22 gm 1 APPLIC TOPICAL ×2 (11:37→17:38)
[2020-08-26 14:00] VITALS: BP 100/60; PULSE 70; RESP 18; TEMP 36.7; O2SAT 96
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
[2020-08-26 20:12] VITALS: BP 123/71; PULSE 71; RESP 18; TEMP 36.7; O2SAT 97
[2020-08-26] MEDS: amitriptyline 25 mg Tablet PO (20:31)
[2020-08-26] MEDS: trazodone 150 mg Tablet PO (20:31)
[2020-08-27 06:00] VITALS: BP 133/81; PULSE 67; RESP 17; TEMP 36.6; O2SAT 95
[2020-08-27] MEDS: gabapentin 300 mg Capsule PO ×3 (08:34→19:47)
[2020-08-27] MEDS: lamoTRIgine 25 mg Tablet PO (08:34)
[2020-08-27] MEDS: fluoxetine 20 mg Capsule 60 MG PO (08:34)
[2020-08-27] MEDS: ropinirole 0.25 mg Tablet PO ×2 (08:34→19:50)
[2020-08-27] MEDS: mupirocin oint 22 gm 1 APPLIC TOPICAL ×2 (08:46→19:48)
[2020-08-27] MEDS: triamcinolone 0.1% cream 15 gm 1 APPLIC TOPICAL ×2 (08:47→19:48)
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
[2020-08-27 14:00] VITALS: BP 128/73; PULSE 102; RESP 20; TEMP 36; O2SAT 98
[2020-08-27] MEDS: trazodone 150 mg Tablet PO (19:47)
[2020-08-27] MEDS: acetaminophen 325 mg Tablet 650 MG PO (19:47)
[2020-08-27] MEDS: amitriptyline 25 mg Tablet PO (19:47)
[2020-08-27 21:53] VITALS: BP 114/73; PULSE 85; RESP 17; TEMP 36.3; O2SAT 96
[2020-08-28 06:00] VITALS: BP 131/73; PULSE 74; RESP 15; TEMP 36.3; O2SAT 95
[2020-08-28] MEDS: lamoTRIgine 25 mg Tablet PO (08:19)
[2020-08-28] MEDS: fluoxetine 20 mg Capsule 60 MG PO (08:19)
[2020-08-28] MEDS: ropinirole 0.25 mg Tablet PO (08:19)
[2020-08-28] MEDS: gabapentin 300 mg Capsule PO ×2 (08:19→14:03)
--- NOTE | 2020-08-28 09:16 | PC.NURSE ---
pt refused triamcinolone 0.1% cream, also refused Mupirocian Ointment at this time, pt stated that he didn't need the creams at this time. Will continue to monitor pt.
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
[2020-08-28 12:12] VITALS: BP 131/73; PULSE 74; RESP 15; TEMP 36.3; O2SAT 95
[2020-08-28] MEDS: acetaminophen 325 mg Tablet 650 MG PO (14:03)
== END 2020-08-28 15:01 | disposition home or self-care (01) | DRG 885 ==
LOC: ER 18:05 → NP 19:28
PROVIDERS: Nurse Practitioner Family; Admitting Provider Psychiatry & Neurology Psychiatry; Emergency Provider Physician Assistant; PCP Family Medicine; Visit Provider Psychiatry & Neurology Psychiatry
DX: F31.9 Bipolar disorder, unspecified (principal); R45.851 Suicidal ideations; F43.10 Post-traumatic stress disorder, unspecified; F41.9 Anxiety disorder, unspecified; F07.89 Other personality and behavioral disorders due to known physiological condition; F17.220 Nicotine dependence, chewing tobacco, uncomplicated; I25.10 Atherosclerotic heart disease of native coronary artery without angina pectoris; I10 Essential (primary) hypertension; G25.81 Restless legs syndrome; G47.30 Sleep apnea, unspecified; G89.29 Other chronic pain; L90.5 Scar conditions and fibrosis of skin; F15.90 Other stimulant use, unspecified, uncomplicated; G43.711 Chronic migraine without aura, intractable, with status migrainosus; Z63.0 Problems in relationship with spouse or partner; Z91.5 Personal history of self-harm; Z81.8 Family history of other mental and behavioral disorders; Z87.828 Personal history of other (healed) physical injury and trauma
CPT/HCPCS: 80053; 80306; 80307; 85025; 93005; 99285

== ENCOUNTER → 2020-09-05 16:50 | Outpatient (BNVA) | payer MEDICARE, MEDICAID, SELFPAY | PROVIDERS: PCP Family Medicine; Visit Provider Nurse Practitioner Family | DX: L30.9 Dermatitis, unspecified (principal); B99.9 Unspecified infectious disease; R73.09 Other abnormal glucose | CPT/HCPCS: 36416; 82962 ==

== ENCOUNTER 2020-09-20 21:32 | Emergency (ER) | payer MEDICARE, MEDICAID, SELFPAY ==
[2020-09-20 21:33] VITALS: BP 156/86; PULSE 80; RESP 16; TEMP 36.6; O2SAT 98; BMI 24.3
--- NOTE | 2020-09-20 21:40 | ED_ITS ---
HPI - Psych General: Chief Complaint: Psychiatric Symptoms Stated Complaint: SI Time Seen by Provider: 09/20/20 21:33 Source: patient and EMS Mode of arrival: EMS Limitations: no limitations History of Present Illness: HPI Narrative: 50-year-old male who has a long history of anxiety and depression. Patient was admitted here 2 weeks ago for his depression. He states that he has just been having worsening anxiety and depression. He states he went to be evaluated by psychiatrist. He has no active suicidality. Denies any homicidal ideations. Denies any worsening improving factors. Associated symptoms: Reports depression Review of Systems Const: Denies: fever(s), chills, body aches or change in appetite Eyes: Denies: blurry vision or eye discomfort ENMT: Denies: throat pain or dental pain Card: Denies: chest pain Resp: Denies: dyspnea GI: Denies: abdominal pain, nausea, vomiting or diarrhea : Denies: dysuria Musc: Denies: neck pain or back pain Skin/Breast: Denies: rash Neuro: Denies: headache(s) Psych: Reports: anxiety and depression Tobin/Lymph: Denies: easy bruising All/Imm: Denies: urticaria PFSH ED PFSH: Medical History Bipolar 1 disorder, depressed, moderate Carotid artery disease without cerebral infarction Chronic back pain Chronic neck pain Essential hypertension GERD (gastroesophageal reflux disease) Headache Hypertension Personality change PVC (premature ventricular contraction) Restless leg syndrome Sleep apnea Witnessed seizure-like activity Surgical History H/O neck surgery H/O repair of rotator cuff History of appendectomy Social History Smoking and tobacco status: current every day smoker smokeless tobacco Smokeless tobacco user: chewing tobacco Smokeless tobacco details: 1/2 can per day Alcohol intake: never History of recent travel: No Physical Exam Const: COMMON NORMALS: no acute distress, patient oriented x3 and healthy appearing HENMT: COMMON NORMALS: normocephalic and atraumatic HEAD & SCALP: normocephalic and atraumatic Eye: COMMON NORMALS: Equal, round and reactive pupils present and EOMs intact bilaterally PUPIL: Yes Equal, round and reactive pupils present Neck/C-Spine: COMMON NORMALS: full ROM and supple Chest: COMMONS NORMALS: normal inspection of the chest and normal palpation of entire chest wall Resp: COMMON NORMALS: normal respiratory effort, No retractions, No use of accessory muscles and clear to auscultation bilaterally AUSCULTATION: clear to auscultation bilaterally Cardio: COMMON NORMALS: regular rate, regular rhythm and No murmurs present (Cardio) RATE: regular rate RHYTHM: regular rhythm GI: COMMON NORMALS: Normal to inspection, nondistended, normoactive bowel sounds present, Soft to palpation, non-tender and no masses PALPATION: Yes Soft to palpation Extremity: COMMON NORMALS: normal to inspection and full ROM Neuro: COMMON NORMALS: patient oriented x3, moves all extremities and no focal motor deficits Psych: COMMON NORMALS: mental status grossly normal, Normal thought process present and cooperative THOUGHT PROCESS: Normal thought process present Skin: COMMON NORMALS: no rashes or lesions noted and no wounds GENERAL SKIN EXAM: no rashes or lesions noted Course Vital Signs: Vital signs: Vital Signs Temperature 97.9 F 09/20/20 21:33 Pulse Rate 80 09/20/20 21:33 Respiratory Rate 16 09/20/20 21:33 Blood Pressure 156/86 09/20/20 21:33 Pulse Oximetry 98 09/20/20 21:33 MDM - Psych MDM Narrative: Medical decision making narrative: Patient presents here with anxiety along with some depression. Had patient evaluated by Dr. Lorenzo will increase his trazodone to 150 mg at night. He is not actively suicidal and Dr. Lorenzo does not feel that he needs to be admitted at this time. I agree that this is well. I spoke to patient at length and informed if he has any worsening depression or suicidal thoughts he is to return immediately. He understands and agrees to this plan. Lab Data: Labs: Lab Results 09/20/20 09/20/20 Range/Units 20:35 20:35 WBC 9.2 (4.0-10.0) 10^3/ uL RBC 5.47 H (4.1-5.3) 10^6/u L Hgb 15.1 (11.7-16.6) g/dL Hct 45.0 (42.0-52.0) % MCV 82.3 (80-94) fL MCH 27.6 L (28.0-34.0) pg MCHC 33.6 (30.0-36.0) g/dL RDW 14.4 (12.1-15.1) % Plt Count 329 (130-400) 10^3/c mm MPV 10.5 H (7.4-10.4) fL Neut % (Auto) 62.0 % Lymph % (Auto) 27.4 % Jack % (Auto) 7.3 % Eos % (Auto) 2.3 % Baso % (Auto) 0.8 % Neut # (Auto) 5.71 (1.8-7.7) 10^3/u L Lymph # (Auto) 2.5 (0.8-4.8) 10^3/u L Jack # (Auto) 0.7 (0.2-0.9) 10^3/u L Eos # (Auto) 0.2 (0.0-0.8) 10^3/u L Baso # (Auto) 0.1 (0.0-0.1) 10^3/u L Nucleated RBC % (a uto) 0 % Nucleated RBCs # 0.0 /100WBC Sodium 138 (136-145) mmol/L Potassium 3.7 (3.5-5.1) mmol/L Chloride 103 (98-107) mmol/L Carbon Dioxide 24 (22-29) mmol/L Anion Gap 14.7 (5-19) BUN 13 (6-20) mg/dL Creatinine 0.8 (0.7-1.2) mg/dL GFR Calculation 101.5 (90-130) mL/min Glucose 113 (65-115) mg/dL Calculated Osmolal ity 287 (285-295) mOsm/k g Calcium 8.9 (8.5-10.5) mg/dL Total Bilirubin 0.2 (0.15-1.2) mg/dL AST 17 (0-40) U/L ALT 19 (0-41) U/L Alkaline Phosphata se 162 H (40-130) IU/L Total Protein 7.6 (6.6-8.7) g/dL Albumin 4.3 (3.5-5.2) g/dL Globulin 3.3 (1.3-4.6) g/dL Salicylates 0.7 L (3-10) mg/dL Acetaminophen < 5.0 L (10-30) ug/mL Ethyl Alcohol < 10 (0-10) mg/dL Discharge Plan Discharge Patient Disposition: Home Clinical Impression: Depression, Anxiety Condition: Stable Prescriptions: New trazodone 150 mg tablet 150 mg PO DAILY Qty: 30 RF: 0 No Action hydrocortisone 2.5 % ointment 1 applic topical BID PRN (Reason: itching) Qty: 28.35 RF: 0 gabapentin 300 mg capsule 300 mg PO TID 30 Days Qty: 90 RF: 1 Hold Instructions: Patient No Longer Taking hydroxyzine pamoate 25 mg capsule 50 mg PO Q6H PRN (Reason: Anxiety) 30 Days Qty: 180 RF: 1 Hold Instructions: Patient No Longer Taking triamcinolone acetonide 0.1 % cream 1 applic topical BID Qty: 28.4 RF: 0 mupirocin 2 % ointment 1 applic topical BID Qty: 15 RF: 0 Vraylar 1.5 mg (1)- 3 mg (6) capsule,dose pack See Rx Instructions PO .COMPLEX Qty: 7 RF: 0 ropinirole [Requip] 0.25 mg tablet 0.25 mg PO BID Qty: 60 RF: 0 amitriptyline 25 mg tablet 50 mg PO .at bedtime Qty: 60 RF: 2 tizanidine 4 mg Tablet 4 mg PO TID PRN (Reason: Muscle Pain) 30 Days Qty: 90 RF: 0 fluoxetine 20 mg Capsule 60 mg PO DAILY 30 Days Qty: 90 RF: 1 Discharge Orders: Discharge ED (Routine); Ordered 09/20/20 Ordered By: Cha Keith Referrals: Madie Lorenzo MD [Primary Care Provider] - Discharge Diet: Advance as tolerated Discharge Activity: Resume usual activity Patient Instructions: Depression (ED) Coding Level of Care Code ED Wood Model Builder for Chg Fwd Exam Comprehensive
[2020-09-20 21:57] LABS: Basophils # 0.1 10^3/uL (0.0-0.1); Basophils % 0.8 %; Eosinophils # 0.2 10^3/uL (0.0-0.8); Eosinophils % 2.3 %; Hemoglobin 15.1 g/dL (11.7-16.6); Lymphocytes # 2.5 10^3/uL (0.8-4.8); Lymphocytes % 27.4 %; Mean Corpuscular HGB Conc 33.6 g/dL (30.0-36.0); Mean Corpuscular Hemoglobin 27.6 pg (28.0-34.0); Mean Corpuscular Volume 82.3 fL (80-94); Mean Platelet Volume 10.5 fL (7.4-10.4); Monocytes # 0.7 10^3/uL (0.2-0.9); Monocytes % 7.3 %; Neutrophils # 5.71 10^3/uL (1.8-7.7); Nucleated Red Blood Cells % 0 %; Platelet Count 329 10^3/cmm (130-400); Red Blood Count 5.47 10^6/uL (4.1-5.3); Red Cell Distribution Width 14.4 % (12.1-15.1); White Blood Count 9.2 10^3/uL (4.0-10.0)
[2020-09-20 22:14] LABS: Alanine Aminotransferase 19 U/L (0-41); Albumin Level 4.3 g/dL (3.5-5.2); Alkaline Phosphatase 162 IU/L (40-130); Anion Gap 14.7 (5-19); Aspartate Amino Transferase 17 U/L (0-40); Blood Urea Nitrogen 13 mg/dL (6-20); Calcium 8.9 mg/dL (8.5-10.5); Carbon Dioxide 24 mmol/L (22-29); Chloride 103 mmol/L (98-107); Creatinine Clr Calc Pharmacy 107.0514; Globulin 3.3 g/dL (1.3-4.6); Glomerular Filtration Rate 101.5 mL/min (90-130); Glucose 113 mg/dL (65-115); Osmolality Calculated 287 mOsm/kg (285-295); Potassium 3.7 mmol/L (3.5-5.1); Salicylate 0.7 mg/dL (3-10); Sodium 138 mmol/L (136-145); Total Bilirubin 0.2 mg/dL (0.15-1.2); Total Protein 7.6 g/dL (6.6-8.7)
[2020-09-20 22:17] LABS: Acetaminophen < 5.0 ug/mL (10-30); Alcohol Level < 10 mg/dL (0-10)
[2020-09-20 22:43] LABS: Amphetamines Screen Urine Negative (Negative); Barbiturates Screen Urine Negative (Negative); Benzodiazepines Screen Urine Positive (Negative); Cocaine Screen Urine Negative (Negative); Opiate Screen Urine Negative (Negative); PCP Screen Urine Negative (Negative); THC Screen Urine Negative (Negative)
== END 2020-09-20 22:29 | disposition home or self-care (01) ==
PROVIDERS: Emergency Provider Emergency Medicine; PCP Family Medicine
DX: F32.9 Major depressive disorder, single episode, unspecified (principal); F41.9 Anxiety disorder, unspecified; I10 Essential (primary) hypertension; F17.220 Nicotine dependence, chewing tobacco, uncomplicated; Z79.899 Other long term (current) drug therapy
CPT/HCPCS: 80053; 80306; 80307; 85025; 99284

== ENCOUNTER 2022-11-15 13:00 | Inpatient (IN) | payer MEDICARE, MEDICAID, SELFPAY ==
[2022-11-15] VITALS (7 sets, daily range): BP systolic 133–250; BP diastolic 81–125; PULSE 80–101; RESP 14–20; TEMP 36.8; O2SAT 94–95; BMI 27.3
--- NOTE | 2022-11-15 13:34 | PC.NURSE ---
PT STATED TO THE RN THAT HE WISHED HE WOULD BUT DENIES SI AT THIS TIME DUE TO HIS SABIANISM BELIEFS. DR. SHRESTHA WAS NOTIFIED NO FURTHER ORDERS AT THIS TIME
--- NOTE | 2022-11-15 13:35 | PC.NURSE ---
Pt stated he wishes to be . He does not wish to inflict any actual injury on self but wishes god would take him out also states doesnt want to be here no more . Dr Faulkner notified no further orders at this time.
[2022-11-15] MEDS: cloNIDine 0.1 mg Tablet 0.2 MG PO (14:16)
[2022-11-15 14:25] LABS: Basophils # 0.1 10^3/uL (0.0-0.1); Basophils % 0.4 %; Eosinophils # 0.1 10^3/uL (0.0-0.8); Hemoglobin 16.4 g/dL (11.7-16.6); Lymphocytes # 2.1 10^3/uL (0.8-4.8); Lymphocytes % 16.3 %; Mean Corpuscular HGB Conc 32.8 g/dL (30.0-36.0); Mean Corpuscular Volume 85.3 fl (80-94); Mean Platelet Volume 10.5 fL (7.4-10.4); Monocytes # 0.9 10^3/uL (0.2-0.9); Monocytes % 7.1 %; Neutrophils # 9.55 10^3/uL (1.8-7.7); Neutrophils % 74.9 %; Nucleated Red Blood Cells % 0 %; Platelet Count 253 10^3/cmm (130-400); Red Blood Count 5.86 10^6/uL (4.1-5.3); Red Cell Distribution Width 13.4 % (12.1-15.1); White Blood Count 12.8 10^3/uL (4.0-10.0)
[2022-11-15 14:55] LABS: Alanine Aminotransferase 28 U/L (0-41); Alkaline Phosphatase 139 U/L (40-130); Anion Gap 16.1 (5-19); Aspartate Amino Transferase 16 U/L (0-40); Blood Urea Nitrogen 11 mg/dL (6-20); Calcium 9.1 mg/dL (8.5-10.5); Carbon Dioxide 24 mmol/L (22-29); Chloride 103 mmol/L (98-107); Globulin 3.6 g/dL (1.3-4.6); Glomerular Filtration Rate 77.9 mL/min (90-130); Glucose 88 mg/dL (65-115); Osmolality Calculated 287 mOsm/kg (285-295); Potassium 4.1 mmol/L (3.5-5.1); Sodium 139 mmol/L (136-145); Thyroid Stimulating Hormone 1.76 uIU/mL (0.27-4.20); Total Bilirubin 0.6 mg/dL (0.15-1.2); Total Protein 7.6 g/dL (6.6-8.7)
[2022-11-15 15:01] LABS: Acetaminophen < 5.0 ug/mL (10-30); Alcohol Level < 10 mg/dL (0-10); Salicylate < 0.3 mg/dL (3-10)
[2022-11-15] MEDS: LORazepam 2 mg/mL INJ 1 mL 1 MG IVP (16:01)
[2022-11-15 16:33] LABS: Amphetamines Screen Urine Negative (Negative); Barbiturates Screen Urine Negative (Negative); Benzodiazepines Screen Urine Positive (Negative); Cocaine Screen Urine Negative (Negative); Opiate Screen Urine Negative (Negative); PCP Screen Urine Negative (Negative); THC Screen Urine Negative (Negative)
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
[2022-11-16 06:00] VITALS: BP 115/77; PULSE 70; RESP 18; TEMP 36.9; O2SAT 93
[2022-11-16] MEDS: ibuprofen 600 mg Tablet PO ×2 (06:43→15:21)
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
[2022-11-16 14:00] VITALS: BP 134/74; PULSE 80; RESP 18; TEMP 36.8; O2SAT 95
[2022-11-16 20:17] VITALS: BP 171/89; PULSE 92; RESP 18; TEMP 36.8; O2SAT 95
[2022-11-16] MEDS: trazodone 50 mg Tablet PO (20:37)
[2022-11-17 06:00] VITALS: BP 172/98; PULSE 94; RESP 20; TEMP 36.4; O2SAT 97
[2022-11-17] MEDS: ibuprofen 600 mg Tablet PO ×2 (06:48→17:51)
[2022-11-17] MEDS: hyDROXYzine 25 mg Capsule 50 MG PO ×2 (07:49→14:03)
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
[2022-11-17] MEDS: fluoxetine 20 mg Capsule PO (09:47)
[2022-11-17] MEDS: lamoTRIgine 25 mg Tablet PO (09:47)
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
[2022-11-17 13:52] VITALS: BP 161/95; PULSE 82; RESP 16; TEMP 36.8; O2SAT 95
[2022-11-17] MEDS: trazodone 50 mg Tablet PO (21:08)
[2022-11-17 21:10] VITALS: BP 179/113; PULSE 98; RESP 18; O2SAT 94
[2022-11-18 06:00] VITALS: BP 134/59; PULSE 76; RESP 16; O2SAT 96
[2022-11-18] MEDS: ibuprofen 600 mg Tablet PO ×2 (06:22→14:03)
[2022-11-18] MEDS: lamoTRIgine 25 mg Tablet PO (08:01)
[2022-11-18] MEDS: nicotine 4 mg lozenge MUCOUS MEM ×3 (08:01→20:00)
[2022-11-18] MEDS: fluoxetine 20 mg Capsule PO (08:01)
--- NOTE | 2022-11-18 09:33 | PC.NURSE ---
During morning assessment, patient stated depression 02/11 r/t past experiences. Patient stated that he was experiencing some anxiety. 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 Patient is experiencing back and neck pain. Patient said he has a rachel in his neck, wanting Percocet. This nurse told him that I would let the doctor know of his request.
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
[2022-11-18] MEDS: acetaminophen 325 mg Tablet 650 MG PO (12:09)
[2022-11-18 13:29] VITALS: BP 155/90; PULSE 85; RESP 17; TEMP 36.9; O2SAT 93
--- NOTE | 2022-11-18 15:06 | PC.NURSE ---
Called Dr. Tonya Mitchell's office at to find out more information about the pain medication that was prescribed for patient on 11/01/22. Left message with E[facility]. Called Dr. Mitchell's office for a second time at [phone] and was told that it could take 24 hours to get a call-back from Dr. Mitchell's staff.
[2022-11-18 19:57] VITALS: BP 194/118; PULSE 95; RESP 18; TEMP 37; O2SAT 95
[2022-11-18] MEDS: hyDROXYzine 25 mg Capsule 50 MG PO (20:00)
[2022-11-18] MEDS: trazodone 50 mg Tablet PO (20:05)
[2022-11-19 06:00] VITALS: BP 179/102; PULSE 76; RESP 16; O2SAT 96
[2022-11-19] MEDS: fluoxetine 20 mg Capsule PO (08:28)
[2022-11-19] MEDS: lamoTRIgine 25 mg Tablet PO (08:28)
[2022-11-19] MEDS: hyDROXYzine 25 mg Capsule 50 MG PO ×2 (09:42→20:40)
--- NOTE | 2022-11-19 09:42 | PC.NURSE ---
Patient reporting anxiety 12/12. Patient is anxious about another patient. Administered Vistaril 50mg PO. Will continue to monitor.
[2022-11-19] MEDS: ibuprofen 600 mg Tablet PO (11:39)
[2022-11-19] MEDS: nicotine 4 mg lozenge MUCOUS MEM (12:58)
[2022-11-19 13:46] VITALS: BP 152/93; PULSE 89; RESP 16; TEMP 36.9; O2SAT 93
--- NOTE | 2022-11-19 17:31 | PC.NURSE ---
Dr. Mitchell's nurse called. Patient was prescribed Oxycodone 10mg on October 31 with the instructions of 1 tab PO every 4 hours as needed for neck pain, max of 6 tabs per day. 48 tablets prescribed. A 7 day supply was called in for patient because it is a new medication. Patient is to follow up with Dr. Mitchell on November 27. Patient has been given oxycodone in the past for one month at a time, intermintantly. For instance, he had a one month supply in Jan 2019;May 2019. From 2014 to 2016, patient was given pain medication every month, but that was from another provider, not Dr. Mitchell.
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
[2022-11-19 19:39] VITALS: BP 179/105; PULSE 84; RESP 18; TEMP 36.8; O2SAT 93
[2022-11-19] MEDS: trazodone 50 mg Tablet PO (20:38)
[2022-11-20 06:00] VITALS: BP 174/89; PULSE 77; RESP 20; TEMP 36.7; O2SAT 96
[2022-11-20] MEDS: hyDROXYzine 25 mg Capsule 50 MG PO (06:35)
[2022-11-20] MEDS: lamoTRIgine 25 mg Tablet PO ×2 (09:38→11:41)
[2022-11-20] MEDS: fluoxetine 20 mg Capsule PO (09:39)
--- NOTE | 2022-11-20 09:47 | PC.NURSE ---
Dr. Lorenzo gave verbal orders for nurse to order 10 mg lisinopril, for a BP of 190/102. Pt's BP has been running high on the last 4 readings. Pt stated that in the past he has taken lisinopril.
[2022-11-20] MEDS: lisinopril 10 mg Tablet PO (10:00)
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
[2022-11-20] MEDS: metoprolol tartrate 25 mg Tablet PO (12:57)
[2022-11-20 13:07] VITALS: BP 174/89; PULSE 77; RESP 20; TEMP 36.7; O2SAT 96
--- NOTE | 2022-11-20 13:13 | DCPLANNER ---
IMM was completed on 11/20/22 @ 2911. Pt was given a copy of his rights.
== END 2022-11-20 14:50 | disposition home or self-care (01) | DRG 885 ==
LOC: ER 18:28 → NP 18:35
PROVIDERS: Admitting Provider Psychiatry & Neurology Psychiatry; Emergency Provider Family Medicine; PCP Family Medicine; Visit Provider Psychiatry & Neurology Psychiatry
DX: F31.32 Bipolar disorder, current episode depressed, moderate (principal); F41.9 Anxiety disorder, unspecified; G25.81 Restless legs syndrome; I10 Essential (primary) hypertension; F43.10 Post-traumatic stress disorder, unspecified; G89.29 Other chronic pain; M54.9 Dorsalgia, unspecified; K21.9 Gastro-esophageal reflux disease without esophagitis; F17.220 Nicotine dependence, chewing tobacco, uncomplicated
CPT/HCPCS: 36415; 80053; 80306; 80307; 84443; 85025; 96374; 97150; 97165; 99238; 99285; J2060